=== PATIENT | female | born 1980 | race American Indian/Alaskan Native ===

== ENCOUNTER 2022-04-19 14:04 | Emergency (ER) | payer BC, OTHER ==
[~2022-04-19] VITALS: Ht 177.8 cm; Wt 102.1 kg
[~2022-04-19 14:04] MED LIST: CLARITIN10 MG PO; FUROSEMIDE20 MG PO; LEVOTHYROXINE75 MCG PO; METFORMIN HCL500 M1 PO; METFORMIN HCL500 MG PO; METOPROLOL TART50 MG PO; MULTIVITAMINS1 EAC7 PO; NORCO 5-325 TA1 EACH PO; NORVASC5 MG PO; POLYTRIM EYE DR10 ML OS; PRILOSEC20 MG PO; SYNTHROID75 MCG PO; VITAMIN C500 M1 PO; VITAMIN D5000 UNIT PO
--- OUTSIDE RECORDS SUMMARY | 2022-04-19 14:12 | XMS ---
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 Mason has no Care Guidelines for this patient. [facility] (12 MO.) [facility] NOTE: Visits indicate total known visits. ED/C VISIT TRACKING (12 MO.) [facility] COMPLAINT: - DIABETIC ISSUE 04/16/2022 14:36 [facility] TYPE: Emergency COMPLAINT: - WEKANESS DIAGNOSES: - Essential (primary) hypertension - Hypothyroidism, unspecified - Allergy status to other drugs, medicaments and biological substances - Allergy status to other antibiotic agents - Type 2 diabetes mellitus with hyperglycemia INPATIENT VISIT TRACKING (12 MO.) No inpatient visits to display in this time frame [id number]
== END 2022-04-19 19:09 | disposition home or self-care (01) ==
LOC: ED 14:04
DX: E11.65 Type 2 diabetes mellitus with hyperglycemia (principal); E03.9 Hypothyroidism, unspecified; I10 Essential (primary) hypertension; Z88.8 Allergy status to other drugs, medicaments and biological substances
CPT/HCPCS: 80053; 81001; 85025; 96360; 99284-25; J7030

== ENCOUNTER 2022-12-28 10:09 | Emergency (ER) | payer BC, OTHER ==
[~2022-12-28] VITALS: Ht 177.8 cm; Wt 99.8 kg
[~2022-12-28 10:09] MED LIST changes: +CEPHALEXIN500 MG PO; +MIDOL COMPLETE1 EACH PO
--- OUTSIDE RECORDS SUMMARY | 2022-12-28 10:12 | XMS ---
PreManage Notification: JOCELIN DUMAS Security Rn Spine Events No recent Security Events currently on file [facility] There are no care providers on record at this time. Mason has no Care Guidelines for this patient. Ozzy VISIT COUNT (12 MO.) 3 [facility] TOTAL 3 NOTE: Visits indicate total known visits. ED/C VISIT TRACKING (12 MO.) 12/28/2022 10:10 [facility] TYPE: Emergency COMPLAINT: - POST OP PROBLEMS, DEHYDRATED 04/19/2022 14:05 [facility] TYPE: Emergency COMPLAINT: - DIABETIC ISSUE DIAGNOSES: - Hypothyroidism, unspecified - Essential (primary) hypertension - Allergy status to other drugs, medicaments and biological substances - Type 2 diabetes mellitus without complications - Type 2 diabetes mellitus with hyperglycemia 04/16/2022 14:36 [facility] TYPE: Emergency COMPLAINT: - WEKANESS DIAGNOSES: - Allergy status to other antibiotic agents - Hypothyroidism, unspecified - Type 2 diabetes mellitus with hyperglycemia - Allergy status to other drugs, medicaments and biological substances - Essential (primary) hypertension INPATIENT VISIT TRACKING (12 MO.) No inpatient visits to display in this time frame [email or web address]
[2022-12-28] MEDS ORDERED: HYDROCODONE-AC118 M1 PO (10:28)
[2022-12-28] MEDS ORDERED: AMITRIPTYLINE H10 MG PO (10:28)
[2022-12-28] MEDS ORDERED: CEPHALEXIN250 MG/5 M PO (10:28)
[2022-12-28] MEDS ORDERED: ONDANSETRON ODT8 MG PO (13:40)
[2022-12-28] MEDS ORDERED: CHILDREN'S100 MG/5 M PO (13:40)
[2022-12-28] MEDS ORDERED: CHILDREN'S160 MG/20 PO (13:40)
[2022-12-28] MEDS ORDERED: HYDROMORPHONE HC2 MG PO (13:41)
== END 2022-12-28 14:30 | disposition home or self-care (01) ==
LOC: ED 10:09
DX: R07.0 Pain in throat (principal); R11.0 Nausea; E11.9 Type 2 diabetes mellitus without complications; E03.9 Hypothyroidism, unspecified; I10 Essential (primary) hypertension; Z88.8 Allergy status to other drugs, medicaments and biological substances; Z88.5 Allergy status to narcotic agent; Z79.899 Other long term (current) drug therapy
CPT/HCPCS: 36415; 80053; 85025; 96374; 96375; 96376; 99283-25; J1170; J1885; J2405; J7030